=== PATIENT | female | born 1930 | race Caucasian/White ===

== ENCOUNTER 2021-03-22 20:05 | Inpatient (IN) | payer OTHER ==
[~2021-03-22] VITALS: Ht 160 cm; Wt 69.3 kg
[2021-03-22 21:09] LABS: Basophils # (auto) 0 10 ^3/uL (0-0.2); Basophils % (auto) 0.8 % (0.0-2.0); Eosinophils # (auto) 0.1 10 ^3/uL (0-0.8); Eosinophils % (auto) 2.1 % (0.0-7.0); Hematocrit 38.8 % (36.0-46.0); Hemoglobin 12.9 g/dL (12.2-16.2); Lymphocytes # (auto) 0.5 10 ^3/uL (0.4-5.4); Lymphocytes % (auto) 11.6 % (10.0-50.0); Mean Corpuscular Hemoglobin 31.8 pg (28.0-32.0); Mean Corpuscular Hgb Conc. 33.3 g/dL (32.0-36.0); Mean Corpuscular Volume 95.4 fL (80.0-100.0); Monocytes # (auto) 0.5 10 ^3/uL (0-1.3); Monocytes % (auto) 11.2 % (0.0-12.0); Neutrophils # (auto) 3.5 10 ^3/uL (1.6-8.6); Neutrophils % (auto) 74.3 % (37.0-80.0); Red Blood Cells 4.07 10^6/uL (4.0-5.20); Red Cell Distribution Width 13.1 % (11.8-14.3); White Blood Cell 4.7 10^3/uL (4.4-10.8)
[2021-03-22 21:27] LABS: INR 1.37 (0.9-1.15)
[2021-03-22 21:32] LABS: Albumin 1.8 g/dL (3.4-5.0); BUN/Creatinine Ratio 53.8; Magnesium 1.4 mg/dL (1.6-2.6); Potassium 3.2 mmol/L (3.5-5.1)
[2021-03-22 21:37] LABS: Bilirubin, Total 0.3 mg/dL (0.2-1.0); Total Protein 4.4 g/dL (6.4-8.2)
[2021-03-22 21:55] LABS: Calcium 5.5 mg/dL (8.5-10.1)
[2021-03-22] MEDS ORDERED: CALCIUM GLUC 1,000mg/50ml-NS 50 ML IV ONE (22:15)
[2021-03-22] MEDS ORDERED: LACTATED RINGER'S 500 ML IV ONE (22:15)
[2021-03-22] MEDS ORDERED: ASPirin 325 MG TAB PO ONE (22:15)
[2021-03-22] MEDS: MAGNESIUM SULFATE 1GM/100ML 100 ML IV SCH (22:39)
[2021-03-23] MEDS: MAGNESIUM SULFATE 1GM/100ML 100 ML IV SCH (00:06)
[2021-03-23] MEDS ORDERED: SOD CHL 0.45% 1,000 ML IV ONE (04:30)
[2021-03-23] MEDS ORDERED: ONDANSETRON HCL 4 MG/2 ML VIAL IV PRN (04:30)
[2021-03-23] MEDS ORDERED: MORPHINE SULFATE 4 MG/ML SYR/VIAL IV PRN (04:30)
[2021-03-23] MEDS ORDERED: POTASSIUM CHL 20MEQ/100ML 100 ML IV ONE (04:30)
[2021-03-23] MEDS ORDERED: ALBUMIN 25% 100 ML IV ONE (04:30)
[2021-03-23] MEDS: MAGNESIUM SULFATE 1GM/100ML 100 ML IV ONE ×2 (04:30→05:01)
[2021-03-23] MEDS ORDERED: DOCUSATE SOD 100 MG CAP PO PRN (04:30)
[2021-03-23] MEDS ORDERED: DEXTROSE (50%) 50ML SYRG IV PRN (04:30)
[2021-03-23] MEDS ORDERED: NITROGLYCERIN 0.4 MG SL TAB SL PRN (05:45)
[2021-03-23] MEDS ORDERED: MORPHINE SULFATE INJECTION 2 MG/ML SYRG IV PRN (05:45)
[2021-03-23] MEDS: InsuLIN REG 1unit/0.01ml Soln (100units/ml) SC SCH ×4 (07:00→21:39)
[2021-03-23] MEDS: ACCU-CHEK COMFORT CURVE STRIP VI SCH ×4 (07:11→21:32)
[2021-03-23 07:34] LABS: Basophils # (auto) 0 10 ^3/uL (0-0.2); Basophils % (auto) 0.9 % (0.0-2.0); Eosinophils # (auto) 0.1 10 ^3/uL (0-0.8); Eosinophils % (auto) 2.9 % (0.0-7.0); Hematocrit 30.4 % (36.0-46.0); Hemoglobin 10.1 g/dL (12.2-16.2); Lymphocytes # (auto) 0.7 10 ^3/uL (0.4-5.4); Lymphocytes % (auto) 15.1 % (10.0-50.0); Mean Corpuscular Hemoglobin 31.6 pg (28.0-32.0); Mean Corpuscular Hgb Conc. 33.4 g/dL (32.0-36.0); Mean Corpuscular Volume 94.9 fL (80.0-100.0); Monocytes # (auto) 0.7 10 ^3/uL (0-1.3); Monocytes % (auto) 15.4 % (0.0-12.0); Neutrophils # (auto) 2.8 10 ^3/uL (1.6-8.6); Neutrophils % (auto) 65.7 % (37.0-80.0); Red Cell Distribution Width 13.3 % (11.8-14.3); White Blood Cell 4.3 10^3/uL (4.4-10.8)
[2021-03-23 07:50] LABS: Albumin 3.2 g/dL (3.4-5.0); Calcium 8.4 mg/dL (8.5-10.1); Potassium 4.6 mmol/L (3.5-5.1)
[2021-03-23 07:54] LABS: Bilirubin, Total 0.5 mg/dL (0.2-1.0); Total Protein 6.4 g/dL (6.4-8.2)
[2021-03-23 09:00] VITALS: BP 104/51
[2021-03-23] MEDS ORDERED: ENOXAPARIN SOD 40 MG/0.4 ML SYRINGE SC SCH (10:00)
[2021-03-23] MEDS: FAMOTIDINE (10MG/ML) 2ML VL IV SCH (10:18)
[2021-03-23] MEDS ORDERED: GLIP10TA9 PO (11:24)
[2021-03-23] MEDS ORDERED: POTA-264 PO (11:24)
[2021-03-23] MEDS ORDERED: LOVA40TA72 PO (11:24)
[2021-03-23] MEDS ORDERED: FURO40TA4 PO (11:24)
[2021-03-23] MEDS ORDERED: CEPH500C PO (11:24)
[2021-03-23] MEDS ORDERED: LEVO50TA7 PO (11:24)
[2021-03-23] MEDS ORDERED: LISI2.5T47 PO (11:24)
[2021-03-23] MEDS ORDERED: BUSP10TA90 PO (11:24)
[2021-03-23] MEDS ORDERED: GABA100C9 PO (11:24)
[2021-03-23] MEDS ORDERED: OMEP20TA PO (11:24)
[2021-03-23] MEDS ORDERED: AMIO200T33 PO (11:24)
[2021-03-23] MEDS ORDERED: VENL50TA PO (11:24)
[2021-03-23] MEDS ORDERED: HYDR-4072 PO (11:24)
[2021-03-23] MEDS ORDERED: WARF2.5T39 PO (11:24)
[2021-03-23] MEDS: D5W/SOD CHLO 0.9% 1,000 ML IV SCH ×2 (11:57→21:40)
[2021-03-23 13:00] VITALS: BP 125/62
[2021-03-23 16:41] VITALS: BP 104/56
[2021-03-23 20:00] VITALS: BP 123/56
[2021-03-23] MEDS: ATORVASTATIN 20 MG TAB PO SCH (21:23)
[2021-03-23 22:00] VITALS: BP 123/56
[2021-03-23] MEDS: ACETAMINOPHEN 325 MG TAB PO PRN (23:33)
[2021-03-24 05:00] VITALS: BP 113/54
[2021-03-24] MEDS: ACCU-CHEK COMFORT CURVE STRIP VI SCH ×4 (06:31→22:00)
[2021-03-24] MEDS: D5W/SOD CHLO 0.9% 1,000 ML IV SCH (06:31)
[2021-03-24] MEDS: InsuLIN REG 1unit/0.01ml Soln (100units/ml) SC SCH ×4 (06:32→22:00)
[2021-03-24 07:37] LABS: Basophils # (auto) 0 10 ^3/uL (0-0.2); Basophils % (auto) 0.8 % (0.0-2.0); Eosinophils # (auto) 0 10 ^3/uL (0-0.8); Eosinophils % (auto) 1.1 % (0.0-7.0); Hematocrit 28.8 % (36.0-46.0); Hemoglobin 9.8 g/dL (12.2-16.2); Lymphocytes # (auto) 0.4 10 ^3/uL (0.4-5.4); Lymphocytes % (auto) 13.7 % (10.0-50.0); Mean Corpuscular Hemoglobin 32.9 pg (28.0-32.0); Mean Corpuscular Hgb Conc. 34.1 g/dL (32.0-36.0); Mean Corpuscular Volume 96.5 fL (80.0-100.0); Monocytes # (auto) 0.6 10 ^3/uL (0-1.3); Neutrophils # (auto) 2.2 10 ^3/uL (1.6-8.6); Neutrophils % (auto) 67.4 % (37.0-80.0); Nucleated Red Blood Cells % 0.1 %; Red Blood Cells 2.99 10^6/uL (4.0-5.20); Red Cell Distribution Width 12.8 % (11.8-14.3); White Blood Cell 3.3 10^3/uL (4.4-10.8)
[2021-03-24 07:45] LABS: Albumin 2.6 g/dL (3.4-5.0); Calcium 7.5 mg/dL (8.5-10.1); Magnesium 2.3 mg/dL (1.6-2.6)
[2021-03-24 07:48] LABS: BUN/Creatinine Ratio 25.9; Bilirubin, Total 0.8 mg/dL (0.2-1.0); Total Protein 5.8 g/dL (6.4-8.2)
[2021-03-24 09:00] VITALS: BP 105/54
[2021-03-24] MEDS: FAMOTIDINE (10MG/ML) 2ML VL IV SCH (09:51)
[2021-03-24] MEDS: AMIODARONE HCL 200 MG TAB PO SCH (09:52)
[2021-03-24] MEDS: POTASSIUM CHL 10 Meq TABLET PO SCH (09:52)
[2021-03-24] MEDS: FUROSEMIDE 40 MG TAB PO SCH (09:52)
[2021-03-24] MEDS ORDERED: PATIENTS OWN MEDICATION (Lisinopril 2.5 MG) PO SCH (10:00)
[2021-03-24] MEDS: VENLAFAXINE HCL 25MG TABLET PO SCH ×2 (11:10→22:00)
[2021-03-24 13:00] VITALS: BP 99/36
[2021-03-24] MEDS: busPIRone HCL 10 MG TAB PO SCH ×2 (13:16→22:00)
[2021-03-24] MEDS: GABAPENTIN 100 MG CAP PO SCH ×2 (13:17→22:00)
[2021-03-24 16:40] VITALS: BP 92/65
[2021-03-24] MEDS: ACETAMINOPHEN 325 MG TAB PO PRN (20:19)
[2021-03-24 22:00] VITALS: BP 113/42
[2021-03-24] MEDS: ATORVASTATIN 20 MG TAB PO SCH ×2 (22:00→22:41)
[2021-03-25 05:00] VITALS: BP 111/39
[2021-03-25] MEDS: busPIRone HCL 10 MG TAB PO SCH ×3 (06:00→22:04)
[2021-03-25] MEDS: GABAPENTIN 100 MG CAP PO SCH ×3 (06:00→22:04)
[2021-03-25] MEDS: LEVOTHYROXINE SODIUM 50 MCG TAB PO SCH (06:30)
[2021-03-25] MEDS: InsuLIN REG 1unit/0.01ml Soln (100units/ml) SC SCH ×4 (06:40→22:05)
[2021-03-25] MEDS: ACCU-CHEK COMFORT CURVE STRIP VI SCH ×4 (06:41→22:05)
[2021-03-25 09:00] VITALS: BP 119/59
[2021-03-25] MEDS: FAMOTIDINE (10MG/ML) 2ML VL IV SCH (09:40)
[2021-03-25] MEDS: POTASSIUM CHL 10 Meq TABLET PO SCH (09:41)
[2021-03-25] MEDS: FUROSEMIDE 40 MG TAB PO SCH (09:41)
[2021-03-25] MEDS: AMIODARONE HCL 200 MG TAB PO SCH (09:41)
[2021-03-25] MEDS: VENLAFAXINE HCL 25MG TABLET PO SCH ×2 (10:09→22:04)
[2021-03-25 13:07] VITALS: BP 144/105
[2021-03-25 17:00] VITALS: BP 118/49
[2021-03-25 22:00] VITALS: BP 127/56
[2021-03-25] MEDS: ATORVASTATIN 20 MG TAB PO SCH (22:04)
[2021-03-25] MEDS: HYDROcodone-ACET 5/325MG TAB PO PRN (22:17)
[2021-03-26 05:00] VITALS: BP 115/55
[2021-03-26] MEDS: GABAPENTIN 100 MG CAP PO SCH ×3 (05:54→22:27)
[2021-03-26] MEDS: LEVOTHYROXINE SODIUM 50 MCG TAB PO SCH (05:54)
[2021-03-26] MEDS: busPIRone HCL 10 MG TAB PO SCH ×3 (05:54→22:27)
[2021-03-26] MEDS: ACCU-CHEK COMFORT CURVE STRIP VI SCH ×4 (05:54→22:28)
[2021-03-26] MEDS: InsuLIN REG 1unit/0.01ml Soln (100units/ml) SC SCH ×4 (05:57→22:00)
[2021-03-26 08:30] VITALS: BP 124/84
[2021-03-26 08:35] LABS: Basophils # (auto) 0.1 10 ^3/uL (0-0.2); Basophils % (auto) 1.1 % (0.0-2.0); Eosinophils # (auto) 0.1 10 ^3/uL (0-0.8); Hematocrit 31.5 % (36.0-46.0); Hemoglobin 10.7 g/dL (12.2-16.2); Lymphocytes # (auto) 0.7 10 ^3/uL (0.4-5.4); Lymphocytes % (auto) 14.6 % (10.0-50.0); Mean Corpuscular Hemoglobin 32.9 pg (28.0-32.0); Mean Corpuscular Volume 96.9 fL (80.0-100.0); Monocytes # (auto) 0.8 10 ^3/uL (0-1.3); Monocytes % (auto) 15.6 % (0.0-12.0); Neutrophils # (auto) 3.3 10 ^3/uL (1.6-8.6); Neutrophils % (auto) 65.7 % (37.0-80.0); Red Blood Cells 3.25 10^6/uL (4.0-5.20)
[2021-03-26] MEDS: AMIODARONE HCL 200 MG TAB PO SCH (09:08)
[2021-03-26] MEDS: FAMOTIDINE (10MG/ML) 2ML VL IV SCH (09:08)
[2021-03-26] MEDS: VENLAFAXINE HCL 25MG TABLET PO SCH ×2 (09:09→22:00)
[2021-03-26] MEDS: POTASSIUM CHL 10 Meq TABLET PO SCH (09:09)
[2021-03-26] MEDS: FUROSEMIDE 40 MG TAB PO SCH (09:12)
[2021-03-26] MEDS: ENOXAPARIN SOD 40 MG/0.4 ML SYRINGE SC SCH (09:59)
[2021-03-26 12:30] VITALS: BP 131/67
[2021-03-26 17:00] VITALS: BP 118/54
[2021-03-26 20:19] VITALS: BP 124/61
[2021-03-26] MEDS: HYDROcodone-ACET 5/325MG TAB PO PRN (22:27)
[2021-03-26] MEDS: ATORVASTATIN 20 MG TAB PO SCH (22:27)
[2021-03-27 05:00] VITALS: BP 107/95
[2021-03-27] MEDS: GABAPENTIN 100 MG CAP PO SCH ×3 (06:00→22:47)
[2021-03-27] MEDS: busPIRone HCL 10 MG TAB PO SCH ×3 (06:00→22:44)
[2021-03-27] MEDS: ACCU-CHEK COMFORT CURVE STRIP VI SCH ×4 (06:32→22:50)
[2021-03-27] MEDS: LEVOTHYROXINE SODIUM 50 MCG TAB PO SCH (06:32)
[2021-03-27] MEDS: InsuLIN REG 1unit/0.01ml Soln (100units/ml) SC SCH ×4 (06:33→22:49)
[2021-03-27] MEDS: FAMOTIDINE (10MG/ML) 2ML VL IV SCH (08:49)
[2021-03-27] MEDS: AMIODARONE HCL 200 MG TAB PO SCH (08:50)
[2021-03-27] MEDS: VENLAFAXINE HCL 25MG TABLET PO SCH ×2 (08:50→22:00)
[2021-03-27] MEDS: POTASSIUM CHL 10 Meq TABLET PO SCH (08:51)
[2021-03-27] MEDS: ENOXAPARIN SOD 40 MG/0.4 ML SYRINGE SC SCH (08:51)
[2021-03-27] MEDS: FUROSEMIDE 40 MG TAB PO SCH (08:51)
[2021-03-27 09:00] VITALS: BP 130/62
[2021-03-27 11:29] LABS: Basophils # (auto) 0.1 10 ^3/uL (0-0.2); Basophils % (auto) 1.1 % (0.0-2.0); Eosinophils # (auto) 0.1 10 ^3/uL (0-0.8); Eosinophils % (auto) 2.4 % (0.0-7.0); Hematocrit 33.7 % (36.0-46.0); Hemoglobin 11.4 g/dL (12.2-16.2); Lymphocytes # (auto) 0.6 10 ^3/uL (0.4-5.4); Lymphocytes % (auto) 12.7 % (10.0-50.0); Mean Corpuscular Hgb Conc. 33.8 g/dL (32.0-36.0); Mean Corpuscular Volume 94.7 fL (80.0-100.0); Monocytes # (auto) 0.6 10 ^3/uL (0-1.3); Neutrophils # (auto) 3.5 10 ^3/uL (1.6-8.6); Neutrophils % (auto) 71.8 % (37.0-80.0); Nucleated Red Blood Cells % 0.1 %; Red Blood Cells 3.55 10^6/uL (4.0-5.20); Red Cell Distribution Width 12.9 % (11.8-14.3); White Blood Cell 4.9 10^3/uL (4.4-10.8)
[2021-03-27 11:42] LABS: INR 1.16 (0.9-1.15); Partial Thromboplastin Time 30.3 sec (23.6-33.0)
[2021-03-27 13:09] VITALS: BP 136/63
[2021-03-27] MEDS ORDERED: WARFARIN SODIUM 5 MG TAB PO ONE (17:00)
[2021-03-27 17:08] VITALS: BP 107/61
[2021-03-27] MEDS: ACETAMINOPHEN 325 MG TAB PO PRN (21:18)
[2021-03-27 22:00] VITALS: BP 126/55
[2021-03-27] MEDS: ATORVASTATIN 20 MG TAB PO SCH (22:45)
[2021-03-27] MEDS: HYDROcodone-ACET 5/325MG TAB PO PRN (23:00)
[2021-03-28 05:00] VITALS: BP 112/52
[2021-03-28 06:55] LABS: INR 1.1 (0.9-1.15); Partial Thromboplastin Time 26.9 sec (23.6-33.0)
[2021-03-28] MEDS: InsuLIN REG 1unit/0.01ml Soln (100units/ml) SC SCH ×2 (07:00→12:02)
[2021-03-28] MEDS: GABAPENTIN 100 MG CAP PO SCH (07:41)
[2021-03-28] MEDS: busPIRone HCL 10 MG TAB PO SCH (07:41)
[2021-03-28 08:00] VITALS: BP 124/57
[2021-03-28 09:08] VITALS: BP 124/57
[2021-03-28] MEDS: ACCU-CHEK COMFORT CURVE STRIP VI SCH ×2 (09:20→11:45)
[2021-03-28] MEDS: LEVOTHYROXINE SODIUM 50 MCG TAB PO SCH (09:20)
[2021-03-28] MEDS: AMIODARONE HCL 200 MG TAB PO SCH (09:37)
[2021-03-28] MEDS: POTASSIUM CHL 10 Meq TABLET PO SCH (09:38)
[2021-03-28] MEDS: FUROSEMIDE 40 MG TAB PO SCH (09:41)
[2021-03-28] MEDS: FAMOTIDINE (10MG/ML) 2ML VL IV SCH (10:35)
[2021-03-28] MEDS: ENOXAPARIN SOD 40 MG/0.4 ML SYRINGE SC SCH (10:41)
[2021-03-28] MEDS: VENLAFAXINE HCL 25MG TABLET PO SCH (11:45)
[2021-03-28] MEDS: ACETAMINOPHEN 325 MG TAB PO PRN (11:45)
[2021-03-28 12:51] VITALS: BP 131/68
[2021-03-28 14:47] VITALS: BP 124/57
[2021-03-28] MEDS ORDERED: WARFARIN SODIUM 5 MG TAB PO ONE (17:00)
== END 2021-03-28 16:00 | DRG 562 ==
LOC: EDBD 20:05 → ER 20:05 → OVERFLOW 03-23 05:43 → EAST 03-23 08:10 → CENTRAL 03-27 08:20
PROVIDERS: ADMIT Nurse Practitioner Family; ATTEND Internal Medicine Geriatric Medicine
DX: S42.291A Other displaced fracture of upper end of right humerus, initial encounter for closed fracture (principal); I21.A1 Myocardial infarction type 2; I50.31 Acute diastolic (congestive) heart failure; E87.0 Hyperosmolality and hypernatremia; N17.9 Acute kidney failure, unspecified; W01.10XA Fall on same level from slipping, tripping and stumbling with subsequent striking against unspecified object, initial encounter; E83.42 Hypomagnesemia; E83.51 Hypocalcemia; E88.09 Other disorders of plasma-protein metabolism, not elsewhere classified; E11.9 Type 2 diabetes mellitus without complications; I48.0 Paroxysmal atrial fibrillation; E03.9 Hypothyroidism, unspecified; Z20.822 Contact with and (suspected) exposure to COVID-19; E78.5 Hyperlipidemia, unspecified; E87.6 Hypokalemia; Y92.002 Bathroom of unspecified non-institutional (private) residence as the place of occurrence of the external cause; Y93.89 Activity, other specified; Z88.2 Allergy status to sulfonamides; Z88.8 Allergy status to other drugs, medicaments and biological substances; Z95.0 Presence of cardiac pacemaker; Z86.718 Personal history of other venous thrombosis and embolism; Z79.84 Long term (current) use of oral hypoglycemic drugs; Z79.01 Long term (current) use of anticoagulants
CPT/HCPCS: 36415; 70450; 71045; 72125; 73060; 80053; 80061; 82550; 82962; 83036; 83735; 83970; 84100; 84443; 84484; 85025; 85610; 85730; 87081; 87426; 93005; 93306; 96361; 96365; 96368; 97110; 97116; 97163; 97530; G0378; J1815; J3480; J3490; J7042; P9047